=== PATIENT | male | born 1955 | race Asian ===

== ENCOUNTER 2019-07-06 09:29 | Day surgery (SDC) | payer OTHER ==
[~2019-07-06] VITALS: Ht 170.2 cm; Wt 74.8 kg
[2019-07-06] MEDS ORDERED: LIDOCAINE 2% 100 MG/5 ML UJET TP ONE (12:52)
[2019-07-06] MEDS ORDERED: fentaNYL 0.05 MG/ML VIAL ONE (12:52)
[2019-07-06] MEDS ORDERED: fentaNYL 0.05 MG/ML VIAL IVP ONE (14:25)
== END 2019-07-06 14:24 | disposition home or self-care (01) ==
LOC: MDS 09:29 → MMU 09:29 → MDS 14:24
PROVIDERS: ATTEND Internal Medicine Gastroenterology
DX: Z12.11 Encounter for screening for malignant neoplasm of colon (principal); D12.3 Benign neoplasm of transverse colon; D12.4 Benign neoplasm of descending colon; I10 Essential (primary) hypertension; E78.00 Pure hypercholesterolemia, unspecified; E11.9 Type 2 diabetes mellitus without complications; F17.210 Nicotine dependence, cigarettes, uncomplicated; Z79.899 Other long term (current) drug therapy; Z98.890 Other specified postprocedural states
CPT/HCPCS: 45385; J3010